=== PATIENT | male | born 1975 | race American Indian/Alaskan Native ===

== ENCOUNTER 2017-09-14 12:06 | Emergency (ER) | payer OTHER ==
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
[2017-09-14] MEDS ORDERED: MOTRIN PO ONE (15:38)
[2017-09-14] MEDS ORDERED: XYLOCAINE 1% 20 mL INFILTRATI ONE (15:38)
[2017-09-14 16:35] VITALS: BP 120/80
== END 2017-09-14 16:19 | disposition home or self-care (01) ==
LOC: ED 12:06
DX: S41.112A Laceration without foreign body of left upper arm, initial encounter (principal); X99.8XXA Assault by other sharp object, initial encounter; Y93.89 Activity, other specified; Y99.8 Other external cause status; Y92.89 Other specified places as the place of occurrence of the external cause